=== PATIENT | male | born 1965 | race Hispanic/Latino ===

== ENCOUNTER → 2020-04-21 | Outpatient (CLI) | payer OTHER ==
--- NOTE | 2020-04-21 09:27 | Diagnostic Imaging Report ---
EXAMINATION: CHEST 2 VIEWS INDICATION: Pneumonia, shortness of breath COMPARISON: None FINDINGS: LINES/TUBES:None LUNGS:The lungs are moderately inflated. Diffuse predominantly lower lung interstitial opacities. PLEURA:No pleural effusion or pneumothorax. MEDIASTINUM:The cardiomediastinal silhouette appears normal in size and shape. BONES/SOFT TISSUES:No acute osseous injury. ABDOMEN:No free air under the diaphragm. IMPRESSION: Diffuse predominantly lower lung interstitial opacities may present atypical pneumonia in the proper clinical setting. Recommend follow-up PA and lateral chest radiograph in 6-8 weeks to assess for improvement. Signed by: Mitch Ruano MD on 04/21/2020 9:24 AM
== END ==
LOC: RAD 08:49
PROVIDERS: ATTEND Internal Medicine
DX: R06.02 Shortness of breath (principal)
CPT/HCPCS: 71046

== ENCOUNTER → 2020-05-19 | Outpatient (CLI) | payer OTHER ==
--- NOTE | 2020-05-19 08:13 | Diagnostic Imaging Report ---
EXAMINATION: CHEST 2 VIEWS INDICATION: Viral pneumonia COMPARISON: Chest x-ray 04/21/2020 FINDINGS: TUBES and LINES: None. LUNGS: Normal lung volumes. Bilateral and lower lung patchy haziness, improved compared to 04/21/2020. No consolidations. PLEURA: No pleural effusion or pneumothorax. HEART AND MEDIASTINUM: The cardiomediastinal silhouette is unremarkable. BONES AND SOFT TISSUES: No acute osseous lesion. Soft tissues are unremarkable. UPPER ABDOMEN: No free air under the diaphragm. IMPRESSION: Finding is compatible with multifocal pneumonia, improved compared to 04/21/2020. Signed by: Audie Steen DO on 05/19/2020 8:10 AM
== END ==
LOC: RAD 07:09
PROVIDERS: ATTEND Internal Medicine
DX: J12.89 Other viral pneumonia (principal)
CPT/HCPCS: 71046